=== PATIENT | female | born 1995 | race African-American/Black ===

== ENCOUNTER 2022-09-22 13:28 | Emergency (ER) | payer OTHER ==
[~2022-09-22] VITALS: Ht 160 cm; Wt 51.7 kg
[2022-09-22 19:19] VITALS: BP 124/76
== END 2022-09-22 19:20 | disposition home or self-care (01) ==
LOC: M ED 13:28
DX: S13.4XXA Sprain of ligaments of cervical spine, initial encounter (principal); W19.XXXA Unspecified fall, initial encounter; Y92.89 Other specified places as the place of occurrence of the external cause; Y93.89 Activity, other specified; Y99.8 Other external cause status